=== PATIENT | male | born 1965 | race Hispanic/Latino ===

== ENCOUNTER 2021-05-06 15:42 | Emergency (ER) | payer OTHER ==
[~2021-05-06] VITALS: Ht 127 cm; Wt 31.8 kg
[2021-05-06] MEDS ORDERED: ACETAMINOPHEN 325 MG TAB PO ONE (17:00)
[2021-05-06] MEDS ORDERED: ACETAMINOPHEN 325 MG TAB ONE (17:04)
== END 2021-05-06 17:22 | disposition home or self-care (01) ==
LOC: ER 15:57
DX: R07.81 Pleurodynia (principal)
CPT/HCPCS: 71101; 99283